=== PATIENT | male | born 1990 | race Caucasian/White ===

== ENCOUNTER 2018-02-17 22:58 | Emergency (ER) | payer SELFPAY ==
[~2018-02-17] VITALS: Ht 193 cm; Wt 154.2 kg
[2018-02-17] MEDS ORDERED: PEPCID20 MG PO (23:16)
[2018-02-17] MEDS ORDERED: ZESTRIL10 MG PO (23:16)
[2018-02-17] MEDS ORDERED: NOVOLIN N100 UNIT/1 SC (23:16)
[2018-02-17] MEDS ORDERED: ZOFRAN ODT4 MG PO (23:16)
[2018-02-17] MEDS ORDERED: SODIUM CHLORIDE 0.9% 1000ML 1,000 ML IV STA (23:35)
[2018-02-17] MEDS ORDERED: SODIUM CHLORIDE 0.9% 1000ML 2,000 ML IV STA (23:35)
[2018-02-17 23:43] LABS: BASOPHILS % 0.4 % (0.0-1.0); EOSINOPHILS % 0.4 % (0.0-6.0); LYMPHOCYTES # (AUTO) 1.5 (1.0-3.2); LYMPHOCYTES % 16.2 % (18.0-39.1); MEAN CORPUSCULAR HEMOGLOBIN 29.8 pg (28-32); MEAN CORPUSCULAR HGB CONC 35.6 g/dL (31-35); MEAN CORPUSCULAR VOLUME 83.8 fL (81-99); MONOCYTES % 10.6 % (4.4-11.3); NEUTROPHILS # (AUTO) 6.4 (2.1-6.9); NEUTROPHILS % 72.1 % (38.7-80.0); PLATELET COUNT 369 x10e3/uL (140-360); RED BLOOD COUNT 5.37 x10e6/uL (4.3-5.7); RED CELL DISTRIBUTION WIDTH 12.3 % (11.7-14.4)
[2018-02-18 00:04] LABS: ALANINE AMINOTRANSFERASE 8 IU/L (0-55); ALBUMIN 3.7 g/dL (3.5-5.0); ANION GAP 16.6 mmol/L (8-16); BLOOD UREA NITROGEN 5 mg/dL (7-26); BUN/CREATININE RATIO 4 (6-25); CALCIUM 10.5 mg/dL (8.4-10.2); CARBON DIOXIDE 21 mmol/L (22-29); CHLORIDE 97 mmol/L (98-107); CREATININE, SERUM 1.14 mg/dL (0.72-1.25); EST GLOMERULAR FILTRATION RATE > 60 ML/MIN (60-); POTASSIUM 3.6 mmol/L (3.5-5.1); SODIUM 131 mmol/L (136-145)
[2018-02-18 00:05] LABS: ALBUMIN/GLOBULIN RATIO 0.9 (0.8-2.0); ALKALINE PHOSPHATASE 156 IU/L (40-150); CREATINE KINASE 55 IU/L (30-200); GLUCOSE 420 mg/dL (74-118); LIPASE < 4 U/L (8-78)
[2018-02-18 00:06] LABS: CREATINE KINASE MB < 1.00 ng/mL (0-4.3)
[2018-02-18] MEDS ORDERED: INSULIN REGULAR, HUMAN 100 UNIT/1 ML 3ML VIAL IV ONE (00:30)
[2018-02-18] MEDS ORDERED: SODIUM CHLORIDE 0.9% 1000ML 1,000 ML IV SCH (00:30)
[2018-02-18] MEDS ORDERED: NOVOLIN N100 UNIT/1 SQ (00:54)
== END 2018-02-18 01:15 | disposition home or self-care (01) ==
LOC: ER 22:58
DX: R10.13 Epigastric pain (principal); E11.65 Type 2 diabetes mellitus with hyperglycemia; I10 Essential (primary) hypertension; F17.210 Nicotine dependence, cigarettes, uncomplicated
CPT/HCPCS: 36415; 80053; 82550; 82553; 83690; 84484; 85025; 99283; J7030